=== PATIENT | female | born 1955 | race African-American/Black ===

== ENCOUNTER 2016-07-26 14:22 | Inpatient (IN) | payer MEDICARE, SELFPAY ==
--- NOTE | ~2016-07-26 | DS ---
Discharge Summary [facility] [address] [facility] [place]. [address] NAME: MANASA AVILA : 53 STATUS : ADM IN [facility]#: [id number] AGE: 60 ADM/REG DATE : 07/26/16 MR#: [id number] REPORT SERV DATE: 07/31/16 DICTATED BY: KALEB KAISER DATE: 07/31/16 REPORT STATUS : Draft TRANSCRIBED BY: MODL DATE: 07/31/16 ADMISSION DATE: 07/26/2016 DISCHARGE DATE: 07/31/2016 DISCHARGE DIAGNOSES: 1. Community-acquired pneumonia. 2. Type 2 diabetes mellitus. 3. Non-small cell lung cancer. 4. Hypophosphatemia, now resolved. 5. Hypokalemia, now resolved. 6. Human immunodeficiency virus disease with normal CD4 count. 7. Coronary artery disease with history of stent. 8. Chronic anemia. 9. History of cerebrovascular accident. 10.Gastroesophageal reflux. 11.Marijuana use. 12.Hypovolemic shock, now resolved. 13.Sepsis, now resolved. CONSULTANTS DURING THIS HOSPITALIZATION: Dr. Baljinder Carter, of Hematology-Oncology, Dr. Deejay Bourgeois, of Infectious Disease. INVASIVE PROCEDURES DONE DURING THIS HOSPITALIZATION: None. BRIEF HISTORY OF PRESENT ILLNESS: The patient is a 60-year-old female with multiple medical issues, presented to Dr. Carter's office with hypoxia and pneumonia and hypovolemia, so she was admitted. For detailed history and physical exam, please see my note dictated on 07/26/2016. HOSPITAL COURSE: After being admitted to the hospital, this patient was started on IV cefepime, vancomycin, and tobramycin. Infectious Disease consultation was obtained. Blood cultures were done which remained negative. Lactated Ringer's was infused at a high rate. Hematology consultation was also obtained and we placed her in the intermediate care unit. This patient continued to improve within 24 hours. She had a good urine output. She did have a slightly low blood pressure and mild tachycardia, for which she received oral Lopressor, we discontinued her Norvasc. Chest x-ray was consistent with right lower lobe pneumonia. Her treatment course was uncomplicated and proceeded on well. She was transitioned to the floor. She has received a total of six days of IV antibiotics and all cultures have been negative. At this time, we will switch her to p.o. Levaquin for four more days to finish a ten day course. She feels better. She is off the oxygen and her hypoxia has resolved. Her appetite has improved as well and she continues to do well. She wants to go home and recover in the home setting. DISCHARGE DISPOSITION: Home. DISCHARGE ACTIVITY: As tolerated. Discharge Summary [place] [address] [address] [facility] [place]. [address] NAME: MANASA AVILA : 53 STATUS : ADM IN PAT#: [id number] AGE: 60 ADM/REG DATE : 07/26/16 MR#: [id number] REPORT SERV DATE: 07/31/16 DICTATED BY: KALEB KAISER DATE: 07/31/16 REPORT STATUS : Draft TRANSCRIBED BY: LAINE DATE: 07/31/16 DISCHARGE DIET: Low sodium diet. DISCHARGE MEDICATIONS: Levaquin 750 mg once daily, Symbicort two puffs twice daily, Lopressor 12.5 mg twice daily, Januvia 100 mg once daily, aspirin 81 mg once daily, Plavix 75 mg once daily, folic acid 1 mg once daily, Kaletra 200/50 two tablets twice daily, Protonix 40 mg once daily, Combivir one tablet twice daily, Nitrostat 0.4 sublingual p.r.n. for chest pain, Zofran 8 mg once every morning. DISCHARGE FOLLOWUP: With Dr. Baljinder Carter, in one to two weeks and with Dr. Zion Lu, as previously scheduled. More than 30 minutes spent planning this patient's discharge, reconciling medications, writing prescriptions, discussing hospital care, and followup with the patient and documenting this discharge. DICTATED BY: Marvin Giles/LAINE Kaleb Kaiser M.D. / [id number] CC: Marvin Giles MD Mark Anderson, M.D.
--- NOTE | ~2016-07-26 | HP ---
History And Physical [place] [address] [facility] [place]. [address] NAME: MANASA AVILA : 53 STATUS : ADM IN [facility]#: [id number] AGE: 60 ADM/REG DATE : 07/26/16 MR#: [id number] REPORT SERV DATE: 07/26/16 DICTATED BY: KALEB KAISER DATE: 07/26/16 REPORT STATUS : Draft TRANSCRIBED BY: MODL DATE: 07/26/16 DATE OF ADMISSION: 07/26/2016 CHIEF COMPLAINT: Weakness. HISTORY OF PRESENT ILLNESS: The patient is a 60-year-old female, unfortunately with multiple medical issues, presented with feeling poorly weak, generalized aching. Became very dehydrated, has not been able to take in good p.o. intake for over a week. Dr. Carter saw her and she was getting her radiation therapy. Her blood pressure was significantly low at 89/60 and her heart rate was in 130s. Dr. Carter gave her some IV fluids yesterday and then she presented again today for her radiation feeling poorly, so it was decided that she needed to be admitted. This patient when I saw her in the intermediate care unit as a direct admission, denied any chest pain. She denied any shortness of breath. She has not had any cough, wheezing, fever. She did complain of having some diarrhea, last bowel movement was today. She denied any abdominal pain, except she does have generalized aching all over. There was no blood in her stool. Her appetite has been very poor. She has lost significant amount of weight. So, she is being admitted for further treatment and evaluation. REVIEW OF SYSTEMS: A 10-point review of systems otherwise is negative. PAST MEDICAL HISTORY: Significant and extensive for aortic aneurysm, stage III lung cancer, chronic anemia, viral hepatitis, coronary artery disease, HIV, hypertension, vascular disease, cerebral infarction in the past, gastroesophageal reflux disease. PAST SURGICAL HISTORY: Significant for hysterectomy, biopsy of the breast lesion, right upper lobe lobectomy, tissue graft aortic valve replacement, and a screening colonoscopy. ALLERGIES: TO SULFA AND IV CONTRAST. MEDICATIONS: Norvasc 5 mg once daily, aspirin 81 mg once daily, Plavix 75 mg once daily, dexamethasone 4 mg b.i.d. for three days to be started on the day of taking Alimta, folic acid, Caltrate, lamivudine and zidovudine combination tablet, Protonix, and Zofran. SOCIAL HISTORY: Admits to smoking, quit about a month ago when she started taking Chantix, was smoking for the last forty years prior to that. Admits to drinking occasionally. Denies use of drugs; however, we did find marijuana in her occluding. FAMILY HISTORY: Mother with heart disease and congestive heart failure. Brother with Hodgkin lymphoma. PHYSICAL EXAMINATION: VITAL SIGNS: Blood pressure is 116/71, pulse of 125, saturation of 97%, respiratory rate is 22. GENERAL: female, lying on the bed, appears to be chronically ill, in no History And Physical [address] [address] NAME: MANASA AVILA : 53 STATUS : ADM IN [facility]#: [id number] AGE: 60 ADM/REG DATE : 07/26/16 MR#: [id number] REPORT SERV DATE: 07/26/16 DICTATED BY: KALEB KAISER DATE: 07/26/16 REPORT STATUS : Draft TRANSCRIBED BY: LAINE DATE: 07/26/16 apparent respiratory distress. She is awake, alert. She is oriented. HEENT: Head is normocephalic, atraumatic. Pupils are equal, round, and reactive to light. Extraocular muscles are intact. Sclerae anicteric. Conjunctivae normal. Oropharynx without lesions. Tongue protrusion is midline. NECK: Supple. No jugular venous distention. No carotid bruits or thyromegaly is appreciated. No lymphadenopathy in the neck is palpable. HEART: Tachycardic. No murmurs, rubs, or gallops. PMI just inside the anterior axillary line. LUNGS: Clear to auscultation on the left. Right, diminished breath sounds on the right lower lobe. No rhonchi, wheezing, or rales are noted. ABDOMEN: Scaphoid soft, nontender, good bowel sounds. No rebound or guarding. No organomegaly. EXTREMITIES: Without cyanosis, clubbing, or edema. Generalized cachexia of cancer with malnourishment is noted. Poor skin turgor is noted. NEUROLOGIC: Cranial nerves II through XII grossly intact. Motor development functioning appears to be normal. Strength is equal and symmetrical bilaterally, even though weak. LABORATORY DATA: White count is 0.8, hemoglobin of 10.8, hematocrit of 31, platelet count is 54,000, no left shift is noted, A1c of 100. CMP shows a sodium of 134, potassium of 2.7, chloride is 95, bicarb is 24, BUN is 20, creatinine is 0.61, glucose of 461. Globulin 2.8, ALT 90, AST 64, total protein 5.5, total bilirubin 0.8, calcium of 8.1. IMPRESSION: 1. Hypovolemic shock. 2. Most likely new onset type 2 diabetes mellitus. 3. Sepsis. 4. Pneumonia in an immunocompromised patient. 5. Stage III lung cancer, under chemo radiation. 6. Human immunodeficiency virus disease. 7. Coronary artery disease with history of intervention. 8. Chronic anemia. 9. History of cerebrovascular accident. 10.Gastroesophageal reflux. 11.Hypertension. 12.Marijuana use. 13.Moderate protein calorie malnutrition. 14.History of aortic valve replacement. PLAN: The patient will be admitted. IV cefepime, vancomycin, and tobramycin will be started. We will ask Infectious Disease to see patient in consultation. We will check routine labs including a hemoglobin A1c. Blood cultures have been done at the Heme-Onc office. We will check a lactate level and repeat again in 3 hours. We will ask Hematology/Oncology to continue following the patient. We will check urine Legionella and strep as well. Aggressive IV fluid resuscitation until sugar is below 200. [address] her on a diabetic diet. We will also start using insulin when the patient trial fully hydrated. We will address home medications when available. Full code for now. History And Physical [address] [address] NAME: MANASA AVILA : 53 STATUS : ADM IN [facility]#: [id number] AGE: 60 ADM/REG DATE : 07/26/16 MR#: [id number] REPORT SERV DATE: 07/26/16 DICTATED BY: KALEB KAISER DATE: 07/26/16 REPORT STATUS : Draft TRANSCRIBED BY: LAINE DATE: 07/26/16 LUIZ/LAINE Kaleb Kaiser M.D. / [id number] CC: Marvin Giles M.D. Mark Anderson, M.D. Benjamin R Nadeau, MD
[~2016-07-26 14:22] MED LIST: PRISTIQ50 MG PO; [UNRECOGNIZED DRUG - CODE] PO
[2016-07-26] MEDS ORDERED: DEX4 PO (16:18)
[2016-07-26 16:34] LABS: LACTATE 3.5 MMOL/L (0.3-2.4)
[2016-07-26 16:49] LABS: PHOSPHORUS, SERUM 1.2 MG/DL (2.5-4.5)
[2016-07-26 17:29] LABS: PROCALCITONIN 13.42 ng/mL (<0.5)
[2016-07-26 19:13] LABS: LACTATE 3.2 MMOL/L (0.3-2.4)
[2016-07-27 06:55] LABS: HEMATOCRIT 22.2 % (36.0-48.0); MEAN CORPUSCULAR HEMOGLOB 35.6 pg (26.0-34.0); MEAN CORPUSCULAR VOLUME 98.7 fL (80-100); NUCLEATED RED BLOOD CELLS 6.1 /100WBC (0-0); PLATELET COUNT 40 10/3/uL (150-400); RBC DISTRIBUTION WIDTH 15.3 % (12.0-16.0); RED CELL COUNT 2.25 10/6/uL (4.0-5.6); WHITE BLOOD CELLS 0.8 10/3/uL (4.5-10.5)
[2016-07-27 06:56] LABS: MANUAL DIFF YES %
[2016-07-27 07:16] LABS: BAND NEUTROPHILS 48 %; EOSINOPHILS 2 %; EOSINOPHILS ABSOLUTE (CALC) 0.02 10/3/uL (0.0-0.53); LYMPHOCYTES 22 %; LYMPHOCYTES ABSOLUTE (CALC) 0.18 10/3/uL (0.67-4.30); MONOCYTES 2 %; MONOCYTES ABSOLUTE (CALC) 0.02 10/3/uL (0.21-1.20); NEUTROPHILS ABSOLUTE (CALC) 0.59 10/3/uL (2.02-8.40); POLYCHROMASIA 1+ (2-5/OIF) (0-1/OIF); SEGMENTED NEUTROPHIL (0) 26 %; TOTAL NUCLEATED CELLS 50
[2016-07-27 09:12] LABS: ALBUMIN 3.8 G/DL (3.5-5.0); CALCIUM, SERUM 8.9 MG/DL (8.5-10.4); CO2 (CARBON DIOXIDE) 30 MMOL/L (24-34); CREATININE 0.46 MG/DL (0.55-1.02); GFR AFRICAN AMERICAN 124 ML/MIN (>=60); GFR NON AFRICAN AMERICAN 107 ML/MIN (>=60); SGOT(AST) 18 U/L (5-40); SGPT(ALT) 55 U/L (5-65); TOTAL PROTEIN 6.8 G/DL (6.0-8.5)
[2016-07-27 09:14] LABS: A/G RATIO 1.3 (0.7-1.9); ALKALINE PHOSPHATASE 45 U/L (45-117); BUN (BLOOD UREA NITROGEN) 6 MG/DL (6-23); GLUCOSE, SERUM 194 MG/DL (60-99); TOTAL BILIRUBIN 1.3 MG/DL (0-1.2)
[2016-07-27 09:21] LABS: CHLORIDE, SERUM 101 MMOL/L (96-112); SODIUM, SERUM 139 MMOL/L (135-148)
[2016-07-27 09:26] LABS: TOBRAMYCIN,TROUGH 0.5 MCG/ML (0-2.0)
[2016-07-28 04:08] LABS: HEMOGLOBIN 9.4 g/dL (12.0-16.0); MEAN CORPUS HGB CONC 35.3 g/dL (32.0-36.0); MEAN CORPUSCULAR HEMOGLOB 35.1 pg (26.0-34.0); MEAN CORPUSCULAR VOLUME 99.3 fL (80-100); RBC DISTRIBUTION WIDTH 15.5 % (12.0-16.0); RED CELL COUNT 2.68 10/6/uL (4.0-5.6)
[2016-07-28 04:11] LABS: HEMATOCRIT 26.6 % (36.0-48.0); MANUAL DIFF YES %; PLATELET COUNT 47 10/3/uL (150-400); WHITE BLOOD CELLS 2.7 10/3/uL (4.5-10.5)
[2016-07-28 04:33] LABS: BAND NEUTROPHILS 40 %; IMMATURE GRANS ABSOLUTE (CALC) 0.11 10/3/uL (0.0-0.11); LYMPHOCYTES 4 %; LYMPHOCYTES ABSOLUTE (CALC) 0.11 10/3/uL (0.67-4.30); METAMYELOCYTES 4 %; NEUTROPHILS ABSOLUTE (CALC) 2.48 10/3/uL (2.02-8.40); NUCLEATED RED BLOOD CELLS 2 /100WBC (0); SEGMENTED NEUTROPHIL (0) 52 %; TOTAL NUCLEATED CELLS 100; TOXIC GRANULATION MOD
[2016-07-28 04:34] LABS: TEARDROP SHAPED RBCS OCC (0-2/OIF)
[2016-07-28 04:46] LABS: ALBUMIN 3.3 G/DL (3.5-5.0); ALKALINE PHOSPHATASE 51 U/L (45-117); BUN (BLOOD UREA NITROGEN) 5 MG/DL (6-23); CALCIUM, SERUM 8.4 MG/DL (8.5-10.4); CHLORIDE, SERUM 96 MMOL/L (96-112); CO2 (CARBON DIOXIDE) 32 MMOL/L (24-34); CREATININE 0.34 MG/DL (0.55-1.02); GFR AFRICAN AMERICAN 137 ML/MIN (>=60); GFR NON AFRICAN AMERICAN 119 ML/MIN (>=60); GLOBULIN 3.2 G/DL (2.5-4.1); PHOSPHORUS, SERUM 1.5 MG/DL (2.5-4.5); SGOT(AST) 21 U/L (5-40); SGPT(ALT) 45 U/L (5-65); SODIUM, SERUM 136 MMOL/L (135-148); TOTAL PROTEIN 6.5 G/DL (6.0-8.5)
[2016-07-28 04:48] LABS: GLUCOSE, SERUM 120 MG/DL (60-99); POTASSIUM, SERUM 2.1 MMOL/L (3.5-5.3); TOTAL BILIRUBIN 2.2 MG/DL (0-1.2)
[2016-07-29 06:11] LABS: HEMATOCRIT 25.8 % (36.0-48.0); HEMOGLOBIN 9.2 g/dL (12.0-16.0); MEAN CORPUS HGB CONC 35.7 g/dL (32.0-36.0); MEAN CORPUSCULAR HEMOGLOB 35.2 pg (26.0-34.0); MEAN CORPUSCULAR VOLUME 98.9 fL (80-100); PLATELET COUNT 56 10/3/uL (150-400); RBC DISTRIBUTION WIDTH 15.9 % (12.0-16.0); RED CELL COUNT 2.61 10/6/uL (4.0-5.6)
[2016-07-29 06:14] LABS: MANUAL DIFF YES %; WHITE BLOOD CELLS 2.4 10/3/uL (4.5-10.5)
[2016-07-29 06:35] LABS: BAND NEUTROPHILS 23 %; EOSINOPHILS 2 %; EOSINOPHILS ABSOLUTE (CALC) 0.05 10/3/uL (0.0-0.53); LYMPHOCYTES 8 %; LYMPHOCYTES ABSOLUTE (CALC) 0.19 10/3/uL (0.67-4.30); NEUTROPHILS ABSOLUTE (CALC) 2.16 10/3/uL (2.02-8.40); PLATELET ESTIMATE DEC (ADEQUATE); SEGMENTED NEUTROPHIL (0) 67 %; TOTAL NUCLEATED CELLS 100
[2016-07-29 06:36] LABS: ALKALINE PHOSPHATASE 57 U/L (45-117); CALCIUM, SERUM 8.5 MG/DL (8.5-10.4); CHLORIDE, SERUM 99 MMOL/L (96-112); CO2 (CARBON DIOXIDE) 28 MMOL/L (24-34); CREATININE 0.27 MG/DL (0.55-1.02); GFR AFRICAN AMERICAN 148 ML/MIN (>=60); GFR NON AFRICAN AMERICAN 128 ML/MIN (>=60); PHOSPHORUS, SERUM 1.1 MG/DL (2.5-4.5); RBC MORPHOLOGY NORM (NORMAL); SGOT(AST) 18 U/L (5-40); SGPT(ALT) 45 U/L (5-65); SODIUM, SERUM 134 MMOL/L (135-148); TOTAL PROTEIN 5.8 G/DL (6.0-8.5); TOXIC GRANULATION 1+
[2016-07-29 06:37] LABS: A/G RATIO 0.8 (0.7-1.9); ALBUMIN 2.6 G/DL (3.5-5.0); BUN (BLOOD UREA NITROGEN) 9 MG/DL (6-23); GLOBULIN 3.2 G/DL (2.5-4.1); GLUCOSE, SERUM 159 MG/DL (60-99); POTASSIUM, SERUM 2.9 MMOL/L (3.5-5.3); TOTAL BILIRUBIN 2.7 MG/DL (0-1.2)
[2016-07-30 06:40] LABS: A/G RATIO 0.7 (0.7-1.9); ALBUMIN 2.6 G/DL (3.5-5.0); ALKALINE PHOSPHATASE 67 U/L (45-117); BUN (BLOOD UREA NITROGEN) 10 MG/DL (6-23); CALCIUM, SERUM 8.5 MG/DL (8.5-10.4); CHLORIDE, SERUM 103 MMOL/L (96-112); CO2 (CARBON DIOXIDE) 24 MMOL/L (24-34); CREATININE 0.32 MG/DL (0.55-1.02); GFR AFRICAN AMERICAN 140 ML/MIN (>=60); GFR NON AFRICAN AMERICAN 121 ML/MIN (>=60); GLOBULIN 3.6 G/DL (2.5-4.1); SGOT(AST) 25 U/L (5-40); SGPT(ALT) 49 U/L (5-65); SODIUM, SERUM 137 MMOL/L (135-148); TOTAL PROTEIN 6.2 G/DL (6.0-8.5)
[2016-07-30 06:42] LABS: GLUCOSE, SERUM 124 MG/DL (60-99); POTASSIUM, SERUM 3.6 MMOL/L (3.5-5.3); TOTAL BILIRUBIN 3.4 MG/DL (0-1.2)
[2016-08-01] MEDS ORDERED: JANUVIA100 MG PO (12:21)
[2016-08-01] MEDS ORDERED: LOP25 PO (12:21)
[2016-08-01] MEDS ORDERED: SYMBICORT 160/41 INH INH (12:21)
[2016-08-01] MEDS ORDERED: LEVAQUIN750 MG PO (12:21)
[2016-08-01] MEDS ORDERED: ZOFRAN8 PO (12:21)
[2016-08-01] MEDS ORDERED: PLAVIX PO (12:21)
[2016-08-01] MEDS ORDERED: ESTRACE1 MG PO (12:21)
[2016-08-01] MEDS ORDERED: NORV5 PO (12:21)
[2016-08-01] MEDS ORDERED: ASAB PO (12:21)
[2016-08-01] MEDS ORDERED: FOLIC PO (12:21)
[2016-08-01] MEDS ORDERED: NITROSTAT0.4 MG SL (12:21)
[2016-08-01] MEDS ORDERED: PROTONIX PO (12:21)
[2016-08-01] MEDS ORDERED: COMBIVIR PO (12:21)
[2016-08-01] MEDS ORDERED: [UNRECOGNIZED DRUG - CODE] PO (12:21)
[2016-08-01] MEDS ORDERED: DEX4 PO (12:27)
== END 2016-07-31 20:02 | disposition home or self-care (01) | DRG 974 ==
LOC: IMCU 14:22 → 4EA 07-30 06:28
PROVIDERS: Internal Medicine; Internal Medicine Hematology & Oncology
DX: A41.9 Sepsis, unspecified organism (principal); R57.1 Hypovolemic shock; B20 Human immunodeficiency virus [HIV] disease; D61.810 Antineoplastic chemotherapy induced pancytopenia; E44.0 Moderate protein-calorie malnutrition; J18.9 Pneumonia, unspecified organism; C34.90 Malignant neoplasm of unspecified part of unspecified bronchus or lung; D64.9 Anemia, unspecified; E87.6 Hypokalemia; I10 Essential (primary) hypertension; E11.9 Type 2 diabetes mellitus without complications; I25.10 Atherosclerotic heart disease of native coronary artery without angina pectoris; K21.9 Gastro-esophageal reflux disease without esophagitis; F12.929 Cannabis use, unspecified with intoxication, unspecified; Z95.2 Presence of prosthetic heart valve; Z86.73 Personal history of transient ischemic attack (TIA), and cerebral infarction without residual deficits
CPT/HCPCS: 71020; 71250; 77336; 77386; 80048; 80053; 80069; 80200; 82533; 82962; 83036; 83605; 83735; 84100; 84132; 84145; 85025; 87641; 93005; 94640; A9270-GY; J0692; J1170; J3260; J3370; J3475; P9047

== ENCOUNTER 2016-08-01 11:40 | Inpatient (IN) | payer MEDICARE, OTHER ==
--- NOTE | ~2016-08-01 | DS ---
Discharge Summary [place] [address] [place]. [address] NAME: MANASA AVILA : 53 STATUS : DIS IN PAT#: [id number] AGE: 60 ADM/REG DATE : 08/01/16 MR#: [id number] REPORT SERV DATE: 08/09/16 DICTATED BY: BALJINDER GRAFF DATE: 08/08/16 REPORT STATUS : Draft TRANSCRIBED BY: MODL DATE: 08/08/16 ADMISSION DATE: 08/01/2016 DISCHARGE DATE: 08/08/2016 DISCHARGE DIAGNOSES: 1. Community-acquired pneumonia, treated. 2. Hypotension. 3. Acute shortness of breath. 4. Chronic cytopenia, chemo induced. 5. Lung cancer. 6. Chronic tachycardia. 7. Severe malnutrition of chronic disease. 8. Debility. 9. Diabetes mellitus type 2. 10.Human immunodeficiency virus. CONSULTATIONS: Oncology, Dr. Baljinder Carter. IMAGIN. Chest x-ray, 07/05/2016. Impression: Persistent, but improving right basilar infiltrate. Stable mild enlargement of cardiac silhouette with stable position of thoracic aortic stent graft. Stable spiculated nodule in the left upper lung. 2. V/Q scan, 08/01/2016. Impression: Low probability of pulmonary embolus. Possible obstruction of the right lower lobe bronchus. 3. Chest x-ray, 08/04/2016. Impression: Continued mixed interstitial and alveolar infiltrate in the right lung base similar to prior exam. Continue speculated nodule in left upper lung. HOSPITAL COURSE: Please refer to history and physical dictated on 08/01/2016 by nurse practitioner, Taylor Martinez, for complete admission details, and interim note dated on 08/07/2016. This patient is a 60-year-old female, who presented as a direct admission from Dr. Carter's office for complaints of increased shortness of breath, tachycardia, and dehydration. The patient does present with a history of stage III lung cancer, chronic anemia, chronic HIV, type 2 diabetes mellitus, coronary artery disease, hypertension, and thoracic aortic aneurysm. 1. Community-acquired pneumonia. The patient was previously admitted on 07/26/2016 through 07/31/2016 for community-acquired pneumonia which she was treated for as well as for sepsis and hypovolemic shock. The patient completed IV antibiotic treatment at that time, and transitioned to p.o. Levaquin. Last dose of antibiotic was noted on 08/04/2016. Procalcitonin upon admission was 13.42. Upon discharge Procalcitonin is 0.57. Chest x-ray, which is noted above was obtained. The patient at this time is afebrile. Denies shortness of breath. The patient has completed antibiotic and is not indicated for long-term antibiotic treatment. 2. Hypotension. The patient's blood pressure has remained in the 90s to low 100. Discharge Summary [address] [address] NAME: MANASA AVILA : 53 STATUS : DIS IN PAT#: [id number] AGE: 60 ADM/REG DATE : 08/01/16 MR#: [id number] REPORT SERV DATE: 08/09/16 DICTATED BY: BALJINDER GRAFF DATE: 08/08/16 REPORT STATUS : Draft TRANSCRIBED BY: LAINE DATE: 08/08/16 Hypertensive medications had been held at this time. Metoprolol 12.5 mg b.i.d. has been given due to secondary chronic tachycardia. 3. Acute shortness of breath. Etiology is unknown. This has been persistent through the patient's hospitalization. The patient at this time is remaining on 3 L of nasal cannula and O2 saturation is 100%. 4. Chronic cytopenia, chemo induced. The patient has been monitored. She did receive one unit of blood on 08/03/2016. At this time, hemoglobin is stable as well as platelet count. 5. Lung cancer. The patient is followed by Dr. Carter, [facility]. She will follow up as outpatient. At this time, chemotherapy is on hold due to low performance status. The patient is undergoing radiation therapy and has approximately three treatments remaining. 6. Chronic tachycardia. As noted above, the patient is on metoprolol to help control tachycardia. Heart rate at this time is 111. 7. Severe malnutrition of chronic disease. We have been continued to encourage p.o. intake. The patient has also been provided Ensure and ProSource t.i.d. 8. Inability. The patient is being discharged to rehab to continue physical therapy. 9. Diabetes mellitus type 2. This is a new diagnosis. ANC upon admission was 7.6. ADA diet was not recommended due to the patient's severe malnutrition and chronic disease. A it risk analyst has met with the patient, education is completed. Meter will be provided. The patient will resume Januvia upon discharge. This patient is being discharged to rehab in hemodynamically stable condition. DISCHARGE MEDICATIONS: 1. Aspirin 81 mg one p.o. every morning. 2. Plavix 75 mg one p.o. every morning. 3. Folic acid 1 mg p.o. every morning. 4. NovoLog sliding scale level 1. 5. Lopressor 25 mg, 12.5 p.o. twice daily. 6. Kaletra 200/50 mg one p.o. twice daily. 7. Protonix 40 mg one p.o. daily. 8. Symbicort two puffs inhale twice daily. 9. MiraLAX one pack daily. 10.Tylenol 325 mg, 650 mg p.o. daily. 11.Glucose tablets, three tablets p.o. p.r.n. 12.Hydrocodone 5/325 mg one p.o. every 4 hours p.r.n. for pain. 13.Zofran 8 mg one p.o. every 8 hours p.r.n. for nausea. 14.Senna two tablets p.o. at bedtime p.r.n. 15.Combivent one tablet p.o. twice daily. 16.Nitrostat 0.4 mg sublingual p.r.n. 17.Januvia 100 mg one tablet p.o. daily. This discharge took less than 30 minutes. DICTATED BY: Baljinder Graff NP Discharge Summary [address] [address] NAME: MANASA AVILA : 53 STATUS : DIS IN PAT#: [id number] AGE: 60 ADM/REG DATE : 08/01/16 MR#: [id number] REPORT SERV DATE: 08/09/16 DICTATED BY: BALJINDER GRAFF DATE: 08/08/16 REPORT STATUS : Draft TRANSCRIBED BY: LAINE DATE: 08/08/16 EUSEBIO/LAINE Baljinder Graff NP / [id number] CC: Marvin Giles M.D.
--- NOTE | ~2016-08-01 | HP ---
History And Physical [id number] [place]. [address] NAME: MANASA AVILA : 53 STATUS : ADM IN [facility]#: [id number] AGE: 60 ADM/REG DATE : 08/01/16 MR#: [id number] REPORT SERV DATE: 08/02/16 DICTATED BY: DATE: REPORT STATUS : Draft TRANSCRIBED BY: MODL DATE: 08/01/16 DATE OF ADMISSION: 08/01/2016 POINT OF ENTRY: Direct admission, requested per Dr. Baljinder Carter at [facility]. CHIEF COMPLAINT: Recent history of community-acquired pneumonia now with shortness of breath, tachycardia, and dehydration. HISTORY OF PRESENTING ILLNESS: The patient's history was obtained through interview with the patient coupled with review of [facility] records. The patient is a 60-year-old female with a history of multiple medical issues to include stage III lung cancer, chronic anemia, HIV, type 2 diabetes mellitus, coronary artery disease, hypertension, and thoracic-aortic aneurysm. It is noteworthy to mention that the patient was hospitalized at [facility] during the dates of 07/26/2016 and 07/31/2016 for treatment of pneumonia in an immunocompromised patient, sepsis, and hypovolemic shock. Discharge diagnoses on 07/31/2016 included community-acquired pneumonia, new diagnosis of type 2 diabetes, and resolution of sepsis and hypovolemic shock. Per review of [facility] note provided by Dr. Baljinder Carter dated 08/01/2016, the patient presented to clinic today for followup after recent hospitalization to treat pneumonia. Upon initial evaluation, the patient presented with shortness of breath at rest coupled with complaints of "hurting all over" and decreased oral intake likely resulting in dehydration. The patient was referred to [facility] for further evaluation and treatment. During interview and exam the patient appeared drowsy and had limited interaction. The patient reported not feeling well since recently being diagnosed with pneumonia. The patient's complaints included shortness of breath at rest with pain underneath left rib associated with inspiration. The patient stated that she felt extremely fatigued and was suffering from significantly decreased appetite. The patient denied any cough or wheezing, but did complain of increased shortness of breath at rest and dyspnea on exertion. REVIEW OF SYSTEMS: CONSTITUTIONAL: No fever, sweats, rigors. EYES: No complaints of blurred or double vision. HENT: No complaints of headache or sore throat. CARDIOVASCULAR: No complaints of chest pain, palpitations, syncope or near syncopal events. RESPIRATORY: Complained of shortness of breath at rest and dyspnea on exertion with pain underneath the left rib associated with inspiration. No complaints of cough or wheezes. GASTROINTESTINAL: No complaints of nausea, vomiting, or diarrhea. History And Physical [address] [address] NAME: MANASA AVILA : 53 STATUS : ADM IN [facility]#: [id number] AGE: 60 ADM/REG DATE : 08/01/16 MR#: [id number] REPORT SERV DATE: 08/02/16 DICTATED BY: DATE: REPORT STATUS : Draft TRANSCRIBED BY: MODL DATE: 08/01/16 MUSCULOSKELETAL: Positive for generalized body aches. INTEGUMENT: Positive for sacral skin breakdown present upon admission. NEUROLOGIC: Positive for generalized weakness. HEMATOLOGIC: Positive for chronic cytopenia. PSYCHIATRIC: Negative for depression, bipolar, and anxiety. : Negative for dysuria and hematuria. ENDOCRINE: Positive for new diagnosis of type 2 diabetes. HOME MEDICATIONS: 1. Norvasc 5 mg tablet p.o. every morning. 2. Aspirin 81 mg p.o. every morning. 3. Symbicort 160/4.5 mcg inhaler two puffs inhale twice daily. 4. Plavix 75 mg tablet p.o. daily. 5. Decadron 4 mg tablet twice daily day before and day after chemo. 6. Folic acid 1 mg p.o. daily. 7. Levaquin 750 mg p.o. x4 days, started 07/31/2016 to complete 10-day antibiotic therapy to treat CAP. 8. Lopinavir/ritonavir 200/50 mg tablet one tablet p.o. twice daily. 9. Lopressor 25 mg tablet, take 2.5 mg p.o. twice daily. 10.Nitrostat 0.4 mg sublingual tablet, p.o. as needed. 11.Zofran 8 mg tablet p.o. every 8 hours as needed. 12.Protonix 40 mg tablet p.o. daily. 13.Januvia 100 mg tablet p.o. daily. 14.Combivir 150/300 mg tablet, one tablet p.o. twice daily. ALLERGIES: 1. IODINATED CONTRAST MEDIA ORAL AND IV, REACTION NAUSEA, VOMITING, AND DIFFICULTY BREATHING. 2. SULFA, REACTION SWELLING OF THE TONGUE. PAST MEDICAL HISTORY: 1. Stage III lung cancer. 2. Thoracic-aortic aneurysm. 3. Chronic anemia. 4. HIV. 5. Viral hepatitis. 6. Coronary artery disease with stent placement. 7. Hypertension. 8. Vascular disease. 9. Cerebral infarction. 10.GERD. 11.Moderate protein calorie malnutrition. 12.Type 2 diabetes mellitus. PAST SURGICAL HISTORY: 1. Right upper lobe lobectomy. 2. Endovascular repair of distal thoracic aortic aneurysm, 07/30/2014. History And Physical [address] [place]. [address] NAME: MANASA AVILA : 53 STATUS : ADM IN [facility]#: [id number] AGE: 60 ADM/REG DATE : 08/01/16 MR#: [id number] REPORT SERV DATE: 08/02/16 DICTATED BY: DATE: REPORT STATUS : Draft TRANSCRIBED BY: MODL DATE: 08/01/16 3. Hysterectomy. 4. Right breast biopsy. 5. Coronary stenting. SOCIAL HISTORY: The patient has a 40-year history of tobacco abuse with recent attempts at cessation. The patient has recent history of trial of Chantix; however, not listed on home medication list. Occasional use of alcohol. History of marijuana use. FAMILY HISTORY: Obtained from review of history and physical from previous admission. Mother with heart disease and congestive heart failure. Brother with Hodgkin lymphoma. ASSESSMENT AND PLAN: 1. Acute shortness of breath. The patient has recent history of community-acquired pneumonia with resolved sepsis and hypovolemic shock. Exact etiology of acute shortness of breath at rest is unclear. Differential diagnoses include unresolved community-acquired pneumonia and pulmonary embolism. Per review of [facility] note, CT scan reported lung cancer decreased in size. Diagnostic tests include CBC, CMP, procalcitonin level, and V/Q scan. CTA of chest, not obtainable secondary to the contrast media allergy. Wells score is 4, which indicates moderate probability for pulmonary embolus. The patient's oxygen saturation is currently 92% on room air and respiration rate is between 20 and 22 breaths per minute. 2. Tachycardia. The patient had a history of intermittent tachycardia during last admission. Exact etiology is unclear, but may be related to anemia and/or dehydration. V/Q scan pending due to concern for pulmonary embolus. Initiate defensive monitoring. Continue home dose of metoprolol, holding for systolic blood pressure less than 110 or heart rate less than 60. Consider EKG if tachycardia persists. The patient is currently asymptomatic. 3. Community-acquired pneumonia. The patient was recently hospitalized between 07/26/2016 and 07/31/2016 for treatment of community-acquired pneumonia in an immunocompromised patient with resolved hypovolemic shock and sepsis. The patient received six days of IV therapy and was discharged on 07/31/2016 with a prescription for four additional doses of Levaquin 750 mg p.o. daily to complete a total of 10-days antibiotic therapy. Continue Levaquin therapy for now and repeat chest x-ray and procalcitonin level. The patient is currently afebrile with no cough. 4. Type 2 diabetes. This is a new diagnosis. The patient's A1c was reported to be 7.6 during last admission, Januvia was initiated, but is currently on hold upon this admission. Check blood glucose a.c. and h.s., and initiate sliding scale insulin with NovoLog level 1 a.c. and h.s. 5. Lung cancer, stage III. The patient is under the outpatient care of Dr. Carter. The patient is currently being treated with cisplatin/Alimta. Therapy is currently on hold secondary to decreased performance status. The patient is also undergoing radiation therapy which will be continued as scheduled during this admission. 6. Chronic cytopenia, this is secondary to treatment. Check labs and transfuse as needed. 7. Generalized weakness. This is multifactorial to include multiple comorbidities. Social Work consulted for discharge eval, planning to include home health care, physical therapy versus senior living facility. 8. Human immunodeficiency virus. Continue home medications. History And Physical [address] [place]. [address] NAME: MANASA AVILA : 53 STATUS : ADM IN [facility]#: [id number] AGE: 60 ADM/REG DATE : 08/01/16 MR#: [id number] REPORT SERV DATE: 08/02/16 DICTATED BY: DATE: REPORT STATUS : Draft TRANSCRIBED BY: MODL DATE: 08/01/16 9. Dehydration. The patient has clinical signs and symptoms of dehydration to include tachycardia and self report of significantly decreased oral intake. Encouraged p.o. intake and initiate IV fluid hydration 125 mL normal saline per hour x1 L then reassess. 10.Moderate protein calorie malnutrition, this is secondary to multiple comorbidities to include cancer and HIV. An 1800 calorie ADA diet with chopped meats and gravy in addition to Glucerna three times daily. The care of this patient will be transferred to the service of Dr. Lion Montesinos. MOISE/LAINE MAT Núñez / [id number] CC: Lion Montesinos II, MD
--- NOTE | ~2016-08-01 | IDS ---
Interim Discharge Summary [address] [place]. [address] NAME: MANASA AVILA : 53 STATUS : ADM IN [facility]#: [id number] AGE: 60 ADM/REG DATE : 08/01/16 MR#: [id number] REPORT SERV DATE: 08/05/16 DICTATED BY: DATE: REPORT STATUS : Draft TRANSCRIBED BY: MODL DATE: 08/04/16 ADMISSION DATE: 08/01/2016 DISCHARGE DATE: DATE OF DISCHARGE: Pending [facility] facility approval. INTERIM DISCHARGE DIAGNOSES: 1. Hypotension. 2. Acute shortness of breath. 3. Community-acquired pneumonia. 4. Chronic cytopenia, chemo induced. 5. Lung cancer. 6. Chronic tachycardia. 7. Severe malnutrition of chronic disease. 8. Human immunodeficiency virus. 9. Type 2 diabetes mellitus. CONSULTATIONS: Baljinder Carter M.D., [facility]. PERTINENT TESTS AND PROCEDURES: 1. Chest x-ray, 08/01/2016. Impression: Persistent, but improving right basilar infiltrate. Stable mild enlargement of cardiac silhouette with stable position of thoracic aortic stent graft. Stable spiculated nodule in left upper lung. 2. V/Q scan, 08/01/2016. Impression: Low probability of pulmonary embolus. Possible obstruction of the right lower lobe bronchus. 3. Chest x-ray, 08/04/2016. Impression: Continued mixed interstitial and alveolar infiltrate at the right lung base similar to prior exam. Continued spiculated nodule in left upper lung. CHIEF COMPLAINT UPON ADMISSION: Recent history of community-acquired pneumonia, now with shortness of breath, tachycardia, and dehydration. Interim summary covers dates of service between 08/01/2016 and 08/04/2016. HOSPITAL COURSE: 1. Community acquired pneumonia. The patient was previously admitted between the dates of service 07/26/2016 and 07/31/2016 for treatment of community-acquired pneumonia in an immunocompromised patient, sepsis and hypovolemic shock. The patient completed IV antibiotic course and then was transitioned to Levaquin 750 mg p.o. daily. Last dose of antibiotic was on 08/04/2016. Procalcitonin obtained during last admission was elevated and reported to be 13.42. Procalcitonin has been checked twice during this admission and is continuing to trend down, it is now 0.78. Chest x-ray obtained today reports continued mixed interstitial and alveolar infiltrate at the right lung base similar to prior exam. The patient has remained afebrile and there was no indication for extended antibiotic therapy. 2. Acute shortness of breath, etiology is unclear. The patient presents as dyspneic at Interim Discharge Summary [address] [address] NAME: MANASA AVILA : 53 STATUS : ADM IN PAT#: [id number] AGE: 60 ADM/REG DATE : 08/01/16 MR#: [id number] REPORT SERV DATE: 08/05/16 DICTATED BY: DATE: REPORT STATUS : Draft TRANSCRIBED BY: MODL DATE: 08/04/16 rest with conversation; however, respiration rate is only 18 breaths per minute. V/Q scan obtained was low probability for pulmonary embolism. Differential diagnoses include physical deconditioning in the setting of multiple comorbidities and possible anxiety. The patient's oxygen saturation on room air at rest is 93%. ABGs were obtained today. Results; pH 7.50, pCO2 of 28, PO2 of 65, and FiO2 of 21%. 3. Hypotension. The patient's systolic blood pressure has ranged between high 90s and low 100s with outline reading of 86/55, around 11 o'clock this morning. This may be related to dehydration in the setting of severe malnutrition of chronic disease. The patient has significantly reduced p.o. intake. Calcium channel tristin was discontinued on 08/03/2016. Metoprolol 12.5 mg p.o. b.i.d. to be given as blood pressure will allow secondary to chronic tachycardia. 4. Chronic tachycardia, exact etiology is unclear. Heart rate ranges from very high 90s to low 120s. Continue beta-tristin if blood pressure will allow. 5. Chronic cytopenia, this is chemo induced. The patient is status post one unit of packed red blood cells on 08/03/2016 transfuse p.r.n. 6. Severe malnutrition of chronic disease. Encourage p.o. intake. The patient is currently receiving Ensure and ProSource t.i.d. 7. Lung cancer. The patient is under the care of Dr. Carter. The patient's last dose of chemotherapy was approximately three weeks ago and is on hold currently secondary to low performance status. The patient is currently undergoing radiation therapy and has approximately three treatments remaining. 8. HIV. Continue current medications. The patient is under the outpatient care of Dr. Lu, Infectious Disease, if there are any concerns regarding infection during this admission it is recommended he be consulted. 9. Type 2 diabetes mellitus. This was a new diagnosis. Last admission A1c was reported to be 7.6. ADA diet is not recommended due to severe malnutrition of chronic disease. tube laser operator saw the patient, and wrote prescription for home glucometer which is in front of the chart to be given at discharge. The patient was placed on Januvia during last admission; however, this medication was placed on hold upon this admit. Evaluate blood glucose and restart Januvia if indicated upon discharge. Main goal is for the patient to increase p.o. intake as she is able and to receive a liberalized diet in the setting of severe malnutrition. DISPOSITION PLANS: The patient is debilitated secondary to multiple comorbidities. PT [facility] to [facility]. Initially the patient was in agreement, but has now changed her mind and wishes to go home with home health care PT. MOISE/LAINE MAT Núñez / [id number] Interim Discharge Summary [address] [address] NAME: MANASA AVILA : 53 STATUS : ADM IN [facility]#: [id number] AGE: 60 ADM/REG DATE : 08/01/16 MR#: [id number] REPORT SERV DATE: 08/05/16 DICTATED BY: DATE: REPORT STATUS : Draft TRANSCRIBED BY: LAINE DATE: 08/04/16 CC: MD Kelly Jones II, M.D.
[~2016-08-01 11:40] MED LIST changes: +DEX4 PO
[2016-08-01] MEDS ORDERED: FOLIC PO (12:21)
[2016-08-01] MEDS ORDERED: LEVAQUIN750 MG PO (12:21)
[2016-08-01] MEDS ORDERED: JANUVIA100 MG PO (12:21)
[2016-08-01] MEDS ORDERED: NITROSTAT0.4 MG SL (12:21)
[2016-08-01] MEDS ORDERED: ZOFRAN8 PO (12:21)
[2016-08-01] MEDS ORDERED: SYMBICORT 160/41 INH INH (12:21)
[2016-08-01] MEDS ORDERED: PLAVIX PO (12:21)
[2016-08-01] MEDS ORDERED: NORV5 PO (12:21)
[2016-08-01] MEDS ORDERED: PROTONIX PO (12:21)
[2016-08-01] MEDS ORDERED: LOP25 PO (12:21)
[2016-08-01] MEDS ORDERED: ASAB PO (12:21)
[2016-08-01] MEDS ORDERED: ESTRACE1 MG PO (12:21)
[2016-08-01] MEDS ORDERED: [UNRECOGNIZED DRUG - CODE] PO (12:21)
[2016-08-01] MEDS ORDERED: COMBIVIR PO (12:21)
[2016-08-01] MEDS ORDERED: DEX4 PO (12:27)
[2016-08-01 16:03] LABS: HEMATOCRIT 24.4 % (36.0-48.0); HEMOGLOBIN 8.4 g/dL (12.0-16.0); MEAN CORPUS HGB CONC 34.4 g/dL (32.0-36.0); MEAN CORPUSCULAR VOLUME 98.8 fL (80-100); MEAN PLATELET VOLUME 12.4 fL (9.2-13.0); NUCLEATED RED BLOOD CELLS 1.9 /100WBC (0-0); RBC DISTRIBUTION WIDTH 16.8 % (12.0-16.0); RED CELL COUNT 2.47 10/6/uL (4.0-5.6); WHITE BLOOD CELLS 2.5 10/3/uL (4.5-10.5)
[2016-08-01 16:04] LABS: MANUAL DIFF YES %; PLATELET COUNT 148 10/3/uL (150-400)
[2016-08-01 16:10] LABS: A/G RATIO 0.6 (0.7-1.9); ALBUMIN 2.2 G/DL (3.5-5.0); ALKALINE PHOSPHATASE 76 U/L (45-117); BUN (BLOOD UREA NITROGEN) 8 MG/DL (6-23); CALCIUM, SERUM 8.5 MG/DL (8.5-10.4); CHLORIDE, SERUM 104 MMOL/L (96-112); CO2 (CARBON DIOXIDE) 25 MMOL/L (24-34); CREATININE 0.31 MG/DL (0.55-1.02); GFR AFRICAN AMERICAN 142 ML/MIN (>=60); GFR NON AFRICAN AMERICAN 122 ML/MIN (>=60); GLOBULIN 3.8 G/DL (2.5-4.1); POTASSIUM, SERUM 4.3 MMOL/L (3.5-5.3); SGOT(AST) 26 U/L (5-40); SGPT(ALT) 41 U/L (5-65); SODIUM, SERUM 137 MMOL/L (135-148)
[2016-08-01 16:11] LABS: GLUCOSE, SERUM 67 MG/DL (60-99); TOTAL BILIRUBIN 1.6 MG/DL (0-1.2)
[2016-08-01 16:24] LABS: ANISOCYTOSIS 1+ (5-10/OIF) (0-5/OIF); BAND NEUTROPHILS 5 %; LYMPHOCYTES 6 %; LYMPHOCYTES ABSOLUTE (CALC) 0.15 10/3/uL (0.67-4.30); MONOCYTES 3 %; MONOCYTES ABSOLUTE (CALC) 0.08 10/3/uL (0.21-1.20); NEUTROPHILS ABSOLUTE (CALC) 2.28 10/3/uL (2.02-8.40); PLATELET ESTIMATE SLT DEC (ADEQUATE); SEGMENTED NEUTROPHIL (0) 86 %; TOTAL NUCLEATED CELLS 100
[2016-08-01 17:07] LABS: PROCALCITONIN 1.84 ng/mL (<0.5)
[2016-08-02 05:50] LABS: BUN (BLOOD UREA NITROGEN) 11 MG/DL (6-23); CALCIUM, SERUM 7.7 MG/DL (8.5-10.4); CHLORIDE, SERUM 110 MMOL/L (96-112); CO2 (CARBON DIOXIDE) 22 MMOL/L (24-34); CREATININE 0.28 MG/DL (0.55-1.02); GFR AFRICAN AMERICAN 147 ML/MIN (>=60); GFR NON AFRICAN AMERICAN 126 ML/MIN (>=60); POTASSIUM, SERUM 4.4 MMOL/L (3.5-5.3); SODIUM, SERUM 140 MMOL/L (135-148)
[2016-08-02 05:52] LABS: GLUCOSE, SERUM 94 MG/DL (60-99)
[2016-08-02 07:28] LABS: HEMOGLOBIN 7.4 g/dL (12.0-16.0); MEAN CORPUS HGB CONC 34.3 g/dL (32.0-36.0); MEAN CORPUSCULAR HEMOGLOB 34.3 pg (26.0-34.0); MEAN PLATELET VOLUME 11.9 fL (9.2-13.0); NUCLEATED RED BLOOD CELLS 1.2 /100WBC (0-0); PLATELET COUNT 153 10/3/uL (150-400); RBC DISTRIBUTION WIDTH 16.8 % (12.0-16.0); RED CELL COUNT 2.16 10/6/uL (4.0-5.6); WHITE BLOOD CELLS 2.7 10/3/uL (4.5-10.5)
[2016-08-02 07:29] LABS: HEMATOCRIT 21.6 % (36.0-48.0); MANUAL DIFF YES %
[2016-08-02 08:17] LABS: LYMPHOCYTES 11 %; MACROCYTES 1+ (5-10/OIF) (0-5/OIF); MONOCYTES 10 %; MONOCYTES ABSOLUTE (CALC) 0.27 10/3/uL (0.21-1.20); NEUTROPHILS ABSOLUTE (CALC) 2.13 10/3/uL (2.02-8.40); PLATELET ESTIMATE ADQ (ADEQUATE); SEGMENTED NEUTROPHIL (0) 79 %; TOTAL NUCLEATED CELLS 100
[2016-08-02 10:43] LABS: ALKALINE PHOSPHATASE 69 U/L (45-117); SGPT(ALT) 35 U/L (5-65)
[2016-08-02 10:49] LABS: DIRECT BILIRUBIN 0.4 MG/DL (0.0-0.4); INDIRECT BILIRUBIN(NOT ORDER) 0.4 MG/DL (0.1-0.9); TOTAL BILIRUBIN 0.8 MG/DL (0-1.2); TOTAL PROTEIN 4.6 G/DL (6.0-8.5)
[2016-08-02 10:50] LABS: SGOT(AST) 31 U/L (5-40)
[2016-08-03 05:11] LABS: HEMOGLOBIN 7.1 g/dL (12.0-16.0); MEAN CORPUS HGB CONC 35.1 g/dL (32.0-36.0); MEAN CORPUSCULAR VOLUME 99.5 fL (80-100); MEAN PLATELET VOLUME 10.8 fL (9.2-13.0); NUCLEATED RED BLOOD CELLS 2.3 /100WBC (0-0); PLATELET COUNT 161 10/3/uL (150-400); RED CELL COUNT 2.03 10/6/uL (4.0-5.6); WHITE BLOOD CELLS 2.7 10/3/uL (4.5-10.5)
[2016-08-03 05:17] LABS: A/G RATIO 0.6 (0.7-1.9); ALBUMIN 1.9 G/DL (3.5-5.0); ALKALINE PHOSPHATASE 65 U/L (45-117); BUN (BLOOD UREA NITROGEN) 8 MG/DL (6-23); CALCIUM, SERUM 8.2 MG/DL (8.5-10.4); CHLORIDE, SERUM 104 MMOL/L (96-112); CO2 (CARBON DIOXIDE) 24 MMOL/L (24-34); CREATININE 0.35 MG/DL (0.55-1.02); GFR AFRICAN AMERICAN 136 ML/MIN (>=60); GFR NON AFRICAN AMERICAN 117 ML/MIN (>=60); GLOBULIN 3.4 G/DL (2.5-4.1); GLUCOSE, SERUM 107 MG/DL (60-99); POTASSIUM, SERUM 3.7 MMOL/L (3.5-5.3); SGOT(AST) 24 U/L (5-40); SGPT(ALT) 31 U/L (5-65); SODIUM, SERUM 137 MMOL/L (135-148); TOTAL BILIRUBIN 0.9 MG/DL (0-1.2); TOTAL PROTEIN 5.3 G/DL (6.0-8.5)
[2016-08-03 05:19] LABS: HEMATOCRIT 20.2 % (36.0-48.0)
[2016-08-03 05:20] LABS: MANUAL DIFF YES %
[2016-08-03 05:40] LABS: BAND NEUTROPHILS 7 %; LYMPHOCYTES 14 %; LYMPHOCYTES ABSOLUTE (CALC) 0.38 10/3/uL (0.67-4.30); MONOCYTES 6 %; MONOCYTES ABSOLUTE (CALC) 0.16 10/3/uL (0.21-1.20); NEUTROPHILS ABSOLUTE (CALC) 2.16 10/3/uL (2.02-8.40); SEGMENTED NEUTROPHIL (0) 73 %; TOTAL NUCLEATED CELLS 100
[2016-08-03 05:41] LABS: ANISOCYTOSIS 1+ (5-10/OIF) (0-5/OIF); MACROCYTES 1+ (5-10/OIF) (0-5/OIF); PLATELET ESTIMATE ADQ (ADEQUATE); POLYCHROMASIA 1+ (2-5/OIF) (0-1/OIF)
[2016-08-04 06:12] LABS: MEAN CORPUS HGB CONC 35.1 g/dL (32.0-36.0); MEAN CORPUSCULAR HEMOGLOB 33.8 pg (26.0-34.0); MEAN PLATELET VOLUME 10.8 fL (9.2-13.0); NUCLEATED RED BLOOD CELLS 3.8 /100WBC (0-0); PLATELET COUNT 195 10/3/uL (150-400); RBC DISTRIBUTION WIDTH 20.3 % (12.0-16.0); WHITE BLOOD CELLS 3.6 10/3/uL (4.5-10.5)
[2016-08-04 06:13] LABS: HEMATOCRIT 26.5 % (36.0-48.0); HEMOGLOBIN 9.3 g/dL (12.0-16.0); MANUAL DIFF YES %; MEAN CORPUSCULAR VOLUME 96.4 fL (80-100); RED CELL COUNT 2.75 10/6/uL (4.0-5.6)
[2016-08-04 06:20] LABS: ANISOCYTOSIS 1+ (5-10/OIF) (0-5/OIF); BAND NEUTROPHILS 12 %; IMMATURE GRANS ABSOLUTE (CALC) 0.11 10/3/uL (0.0-0.11); LYMPHOCYTES 12 %; LYMPHOCYTES ABSOLUTE (CALC) 0.43 10/3/uL (0.67-4.30); METAMYELOCYTES 3 %; MONOCYTES 2 %; MONOCYTES ABSOLUTE (CALC) 0.07 10/3/uL (0.21-1.20); NEUTROPHILS ABSOLUTE (CALC) 2.99 10/3/uL (2.02-8.40); PLATELET ESTIMATE ADQ (ADEQUATE); SEGMENTED NEUTROPHIL (0) 71 %; TOTAL NUCLEATED CELLS 100
[2016-08-04 06:21] LABS: POIKILOCYTOSIS 1+ (5-10/OIF) (0-5/OIF); POLYCHROMASIA 1+ (2-5/OIF) (0-1/OIF)
[2016-08-04 06:22] LABS: GIANT PLATELET OCC
[2016-08-04 17:18] LABS: ALLENS TEST Pos; BE (BASE EXCESS) -1.4 MEQ/L (0 +/- 2.5); CARBOXYHEMOGLOBIN 0.7 % (0-3); HCO3 (ACTUAL BICARBONATE) 21.1 MEQ/L (23-27); HEMOBLOGIN CONTENT 9.8 G/DL (12-16); INSTRUMENT SERIAL # 8083; METHEMOGLOBIN 0.2 % (0-3); O2 CONTENT 12.8 VOL% (18-24); PCO2 (CO2 TENSION) 28 MMHG (35-45); PO2 (O2 TENSION) 65 MMHG (79-93); SAMPLE Arterial
[2016-08-05 06:01] LABS: HEMATOCRIT 26.4 % (36.0-48.0); HEMOGLOBIN 9.1 g/dL (12.0-16.0); MEAN CORPUS HGB CONC 34.5 g/dL (32.0-36.0); MEAN CORPUSCULAR HEMOGLOB 33.5 pg (26.0-34.0); MEAN CORPUSCULAR VOLUME 97.1 fL (80-100); MEAN PLATELET VOLUME 10.8 fL (9.2-13.0); PLATELET COUNT 228 10/3/uL (150-400); RBC DISTRIBUTION WIDTH 20.2 % (12.0-16.0); RED CELL COUNT 2.72 10/6/uL (4.0-5.6); WHITE BLOOD CELLS 4.3 10/3/uL (4.5-10.5)
[2016-08-05 06:03] LABS: MANUAL DIFF YES %
[2016-08-05 06:07] LABS: BUN (BLOOD UREA NITROGEN) 14 MG/DL (6-23); CALCIUM, SERUM 8.6 MG/DL (8.5-10.4); CHLORIDE, SERUM 105 MMOL/L (96-112); CO2 (CARBON DIOXIDE) 22 MMOL/L (24-34); GFR AFRICAN AMERICAN 143 ML/MIN (>=60); GFR NON AFRICAN AMERICAN 124 ML/MIN (>=60); GLUCOSE, SERUM 94 MG/DL (60-99); POTASSIUM, SERUM 3.8 MMOL/L (3.5-5.3); SODIUM, SERUM 138 MMOL/L (135-148)
[2016-08-05 07:18] LABS: ANISOCYTOSIS 1+ (5-10/OIF) (0-5/OIF); BAND NEUTROPHILS 15 %; BASOPHILS 1 %; BASOPHILS ABSOLUTE (CALC) 0.04 10/3/uL (0.0-0.16); EOSINOPHILS 2 %; EOSINOPHILS ABSOLUTE (CALC) 0.09 10/3/uL (0.0-0.53); HELMET CELLS OCC (0-2/OIF); HYPOCHROMIA 1+ (3-10/OIF) (0-2/OIF); IMMATURE GRANS ABSOLUTE (CALC) 0.09 10/3/uL (0.0-0.11); LYMPHOCYTES 18 %; LYMPHOCYTES ABSOLUTE (CALC) 0.77 10/3/uL (0.67-4.30); MACROCYTES 1+ (5-10/OIF) (0-5/OIF); METAMYELOCYTES 2 %; MONOCYTES 6 %; MONOCYTES ABSOLUTE (CALC) 0.26 10/3/uL (0.21-1.20); NEUTROPHILS ABSOLUTE (CALC) 3.05 10/3/uL (2.02-8.40); PLATELET ESTIMATE ADQ (ADEQUATE); POLYCHROMASIA 1+ (2-5/OIF) (0-1/OIF); SEGMENTED NEUTROPHIL (0) 56 %; TEARDROP SHAPED RBCS OCC (0-2/OIF); TOTAL NUCLEATED CELLS 100
[2016-08-05 07:19] LABS: MICROCYTES 1+ (5-10/OIF) (0-5/OIF); SPHEROCYTES OCC (0-2/OIF)
[2016-08-05 07:20] LABS: TOXIC GRANULATION SLT; VACUOLATED NEUTROPHILES OCC
[2016-08-06 06:13] LABS: HEMATOCRIT 28.9 % (36.0-48.0); HEMOGLOBIN 9.9 g/dL (12.0-16.0); MEAN CORPUS HGB CONC 34.3 g/dL (32.0-36.0); MEAN CORPUSCULAR HEMOGLOB 33.2 pg (26.0-34.0); MEAN PLATELET VOLUME 10.3 fL (9.2-13.0); NUCLEATED RED BLOOD CELLS 3.1 /100WBC (0-0); PLATELET COUNT 251 10/3/uL (150-400); RBC DISTRIBUTION WIDTH 19.3 % (12.0-16.0); RED CELL COUNT 2.98 10/6/uL (4.0-5.6); WHITE BLOOD CELLS 4.9 10/3/uL (4.5-10.5)
[2016-08-06 06:15] LABS: MANUAL DIFF YES %
[2016-08-06 06:31] LABS: POTASSIUM, SERUM 4.4 MMOL/L (3.5-5.3)
[2016-08-06 06:56] LABS: ANISOCYTOSIS 1+ (5-10/OIF) (0-5/OIF); BAND NEUTROPHILS 13 %; EOSINOPHILS 1 %; EOSINOPHILS ABSOLUTE (CALC) 0.05 10/3/uL (0.0-0.53); IMMATURE GRANS ABSOLUTE (CALC) 0.05 10/3/uL (0.0-0.11); LYMPHOCYTES 11 %; LYMPHOCYTES ABSOLUTE (CALC) 0.54 10/3/uL (0.67-4.30); METAMYELOCYTES 1 %; MONOCYTES 15 %; MONOCYTES ABSOLUTE (CALC) 0.74 10/3/uL (0.21-1.20); NEUTROPHILS ABSOLUTE (CALC) 3.53 10/3/uL (2.02-8.40); PLATELET ESTIMATE ADQ (ADEQUATE); SEGMENTED NEUTROPHIL (0) 59 %; TOTAL NUCLEATED CELLS 100; VACUOLATED NEUTROPHILES OCC
[2016-08-06 07:00] LABS: HELMET CELLS OCC (0-2/OIF); MACROCYTES 1+ (5-10/OIF) (0-5/OIF); POLYCHROMASIA 1+ (2-5/OIF) (0-1/OIF); TEARDROP SHAPED RBCS OCC (0-2/OIF)
[2016-08-06 07:01] LABS: TOXIC GRANULATION 1+
[2016-08-06 07:02] LABS: MICROCYTES 1+ (5-10/OIF) (0-5/OIF)
== END 2016-08-08 14:18 | DRG 974 ==
LOC: 4EA 11:40
PROVIDERS: Internal Medicine; Internal Medicine Hematology & Oncology; Nurse Practitioner Family
DX: A41.9 Sepsis, unspecified organism (principal); R57.1 Hypovolemic shock; B20 Human immunodeficiency virus [HIV] disease; E43 Unspecified severe protein-calorie malnutrition; J18.9 Pneumonia, unspecified organism; C34.90 Malignant neoplasm of unspecified part of unspecified bronchus or lung; Z68.1 Body mass index [BMI] 19.9 or less, adult; E11.9 Type 2 diabetes mellitus without complications; E88.09 Other disorders of plasma-protein metabolism, not elsewhere classified
CPT/HCPCS: 36415; 71010; 77336; 77386; 78582; 80048; 80053; 80076; 82530; 82805; 82962; 83735; 84100; 84132; 84145; 85025; 86850; 86900; 86901; 86920; 94640; 97116-GP; 97161-GP; 97530-GP; A9270-GY; A9540; A9567; G8978-CK-GP; G8979-CI-GP; J2405; P9016